=== PATIENT | female | born 1940 | race Caucasian/White ===

== ENCOUNTER → 2016-08-17 | Day surgery (SDC) | payer OTHER ==
[~2016-08-17] MED LIST: BUPIVACAINE/EPINEPHRINE 0.5% PF 30 ML VIAL ONE; IOHEXOL 180 MG/ML 20 ML VIAL (for RAD DIAG) ONE; KETOROLAC TROMETHAMINE 30 MG/ML (IVP) VIAL IV PUSH ONE; LACTATED RINGER'S 1000 ML INJ 1,000 ML ONE; LIDOCAINE 1%/EPINEPHrine 1:100,000 SOLN 30 ML VIAL OTHER ONE; MIDAZOLAM HCL 2 MG/2 ML VIAL ONE; PROPOFOL 200 MG/20 ML AMP IV ONE; ceFAZolin 2 GM PREMIX 50 ML ONE
--- NOTE | 2016-08-17 14:05 | TN ---
cc: RANDY FAJARDO DATE OF SURGERY: 08/17/2016 PREOPERATIVE DIAGNOSIS Compression fracture L1, subacute. POSTOPERATIVE DIAGNOSIS Compression fracture L1, subacute. PROCEDURE Kyphoplasty of L1 and placement of a bone cement spacer. SURGEON Randy Fajardo ANESTHESIA TIVA. ESTIMATED BLOOD LOSS Minimal. INDICATION This is a 76-year-old female who sustained an injury to her back almost six weeks ago. The patient had conservative care including altered activities, medication, etc. 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 The patient presents for surgical treatment. DETAILS OF PROCEDURE The patient was brought to the operating room and was given limited sedation. She was rolled to a prone position on a radiolucent table. All pressure points were protected. AP and lateral radiographs were used to identify the L1 level and compared to preoperative studies. Antibiotics were given within a one hour time window. The timeout was done. The back was scrubbed with alcohol followed by Hibiclens followed by ChloraPrep and draped sterilely. A small incision made left of midline over the L1 pedicle. A small incision was made and an awl placed down to the pedicle and into the vertebral body at an oblique angle. A single 20 mm balloon was placed from left to right in the central portion of the vertebral body. This was elevated but we began having some fatigue at the inferior endplate. Filling was stopped at that point. On the back table methyl methacrylate was mixed. We placed some cement in at approximately 10-1/2 minutes. We put a balloon back up and held this for three minutes. We then filled the vertebral body and minimal cement extravasated into the disc space. We had good fill of the vertebral body, extended back to the posterior margin of the vertebral body and we stopped filling at that time. The cement was allowed to harden. The tubes were removed. Intraoperative x-rays were obtained. The wound was irrigated and anesthetized closed with 4-0 Vicryl followed by Dermabond. The patient was awakened and taken to Recovery in satisfactory condition. MD RODNEY Goel/JAZMINE /1:33 PM /1:48 PM
== END | disposition home or self-care (01) ==
LOC: ESDC 10:46
PROVIDERS: ATTEND Orthopaedic Surgery Orthopaedic Surgery of the Spine
DX: S32.010A Wedge compression fracture of first lumbar vertebra, initial encounter for closed fracture (principal)
CPT/HCPCS: 01936; 22514; 72100; J0690; J1885; J2250; J7120; Q9965